=== PATIENT | male | born 1980 | race Caucasian/White ===

== ENCOUNTER 2020-11-07 08:25 | Emergency (ER) | payer SELFPAY ==
[~2020-11-07] VITALS: Ht 170.2 cm; Wt 81.6 kg
[2020-11-07 08:31] VITALS: BP 133/99
--- NOTE | 2020-11-07 08:42 | NUR ---
PT AMB TO BED 11.
[2020-11-07] MEDS ORDERED: DICYCLOMINE HCL LIQUID 20 MG, ALUMINUM HYD/MAG/SIMETHICONE 30 ML, LIDOCAINE VISCOUS 2% ... PO ONE ×3 (08:50)
--- NOTE | 2020-11-07 08:54 | NUR ---
Dr. Carlos at pt bedside for evaluation.
[2020-11-07] MEDS ORDERED: DICYCLOMINE HCL LIQUID 10 MG/5 ML UDC ONE (08:56)
[2020-11-07] MEDS ORDERED: LIDOCAINE VISCOUS 2% 20 ML UDC ONE (08:56)
[2020-11-07] MEDS ORDERED: ALUMINUM HYD/MAG/SIMETHICONE 30 ML UDC ONE (08:56)
--- NOTE | 2020-11-07 08:59 | NUR ---
40 y/o male c/o pressure like pain X1day to epigastric area. Pt recently seen in [facility] for ETOH given morphine and zofran no relief. Denies fever/chills, N/V/D. Denies PMH, RX NKA
[2020-11-07 09:39] VITALS: BP 133/99
--- NOTE | 2020-11-07 09:39 | NUR ---
Patient discharged with v/s stable. Written and verbal after care instructions given and explained. Patient alert, oriented and verbalized understanding of instructions. Ambulatory with steady gait. All questions addressed prior to discharge. ID band removed. Patient advised to follow up with PMD. Rx of zofran 8mg PO PRN N/V, motrin 800mg PO PRN pain, and prilosec 40mg cap PO daily given. Patient educated on indication of medication including possible reaction and side effects. Opportunity to ask questions provided and answered.
== END 2020-11-07 09:39 | disposition home or self-care (01) ==
LOC: MED 08:25
DX: R10.13 Epigastric pain (principal); Z90.49 Acquired absence of other specified parts of digestive tract
CPT/HCPCS: 99283